=== PATIENT | male | born 1995 | race Caucasian/White ===

== ENCOUNTER 2017-09-16 14:34 | Emergency (ER) | payer BC ==
[~2017-09-16] VITALS: Ht 175.3 cm; Wt 97.5 kg
[2017-09-16 14:42] VITALS: BP 132/71
[2017-09-16] MEDS ORDERED: MOBIC7.5 MG PO (15:20)
== END 2017-09-16 15:27 | disposition home or self-care (01) ==
LOC: ER 14:34
DX: S93.401A Sprain of unspecified ligament of right ankle, initial encounter (principal); S93.601A Unspecified sprain of right foot, initial encounter; Z88.1 Allergy status to other antibiotic agents; X50.3XXA Overexertion from repetitive movements, initial encounter; Y93.67 Activity, basketball; Y92.89 Other specified places as the place of occurrence of the external cause; Y99.8 Other external cause status